=== PATIENT | female | born 1960 | race Caucasian/White ===

== ENCOUNTER → 2017-02-01 | Outpatient (CLI) | payer MEDICARE, MEDICAID ==
[2015-03-09 22:00] VITALS: BP 127/90
[~2017-02-01] MED LIST: AZIT500T2 PO; CARI350T PO; CHOL10003 PO; ESOM40CA PO; ESTR0.9T PO; HYDR-2679 PO; HYDR-2762 PO; LEVO175T2 PO; LEVO175T5 PO; LOSA25TA4 PO; OMEP20CA5 PO; OMEP20TA PO; PHEN37.568 PO; SPIR25TA3 PO
--- NOTE | 2017-02-01 11:16 | RAD ---
Radionuclide gastric emptying study, 02/01/2017: History: Reflux and dysphagia with vomiting. The study was performed utilizing a solid test meal radiolabeled with 2.2 mCi of technetium 99m sulfur colloid. Imaging was performed over 1 hour. No gastroesophageal reflux was demonstrated. There was minimal extension of activity from the stomach into the small bowel. The time activity curve is relatively flat. An accurate T 1/2 cannot be calculated in this situation. IMPRESSION: Markedly delayed gastric emptying
== END | disposition home or self-care (01) ==
LOC: NM 07:32
PROVIDERS: ATTEND Internal Medicine Gastroenterology
DX: K21.9 Gastro-esophageal reflux disease without esophagitis (principal); K30 Functional dyspepsia; R13.10 Dysphagia, unspecified; R11.10 Vomiting, unspecified; Z86.73 Personal history of transient ischemic attack (TIA), and cerebral infarction without residual deficits
CPT/HCPCS: 78264; A9541

== ENCOUNTER → 2017-09-12 | Outpatient (CLI) | payer MEDICARE, MEDICAID ==
[2015-03-09 22:00] VITALS: BP 127/90
[~2017-09-12] MED LIST changes: -OMEP20TA PO; +OMEP20TA8 PO; -PHEN37.568 PO; +PHEN37.598 PO
--- NOTE | 2017-09-13 10:24 | RAD ---
DATE: 09/12/2017 EXAM: MAMMO CHRISTINA SCREENING BILATERAL HISTORY: Routine screening COMPARISON: 08/31/2016 This study was interpreted with the benefit of Computerized Aided Detection (CAD). The breast parenchyma is heterogeneously dense, which could reduce sensitivity of mammography. Breast parenchyma level C. FINDINGS: 2-D and 3-D tomosynthesis imaging was performed in CC and MLO projections. No new or enlarging breast densities are seen. Benign type calcifications are present. No suspicious microcalcifications have developed. IMPRESSION: Stable mammograms without evidence of malignancy. BI-RADS CATEGORY: 2 BENIGN FINDING(S) RECOMMENDED FOLLOW-UP: 12M 12 MONTH FOLLOW-UP PQRS compliance statement: Patient information was entered into a reminder system with a target due date for the next mammogram. Mammography is a sensitive method for finding small breast cancers, but it does not detect them all and is not a substitute for careful clinical examination. A negative mammogram does not negate a clinically suspicious finding and should not result in delay in biopsying a clinically suspicious abnormality. "Our facility is accredited by the [employer] Mammography Program."
== END | disposition home or self-care (01) ==
LOC: MAMMO 15:37
PROVIDERS: ATTEND Physician Assistant Medical
DX: Z12.31 Encounter for screening mammogram for malignant neoplasm of breast (principal)
CPT/HCPCS: 77063; G0202; 77067

== ENCOUNTER → 2017-09-25 | Outpatient (CLI) | payer MEDICARE, MEDICAID ==
[2015-03-09 22:00] VITALS: BP 127/90
--- NOTE | 2017-09-25 16:41 | RAD ---
2 view CXR: Clinical indications: Influenza. Cough. Congestion. Comparison: January 20, 2015. Findings: No acute lung infiltrate or pleural effusion or pulmonary edema or lung mass or pneumothorax is seen. The heart size, pulmonary vasculature, mediastinum and both jonn are unremarkable. The osseous structures appear intact. Impression: No acute radiographic abnormality is seen.
== END | disposition home or self-care (01) ==
LOC: RAD 16:11
PROVIDERS: ATTEND Nurse Practitioner Family
DX: R05 Cough (principal); R09.89 Other specified symptoms and signs involving the circulatory and respiratory systems
CPT/HCPCS: 71020

== ENCOUNTER → 2017-11-17 | Outpatient (CLI) | payer MEDICARE, MEDICAID ==
[2015-03-09 22:00] VITALS: BP 127/90
--- NOTE | 2017-11-17 11:46 | RAD ---
EXAM: Lumbar spine 2 or 3 views. HISTORY: Low back pain COMPARISON: 02/07/2013. FINDINGS: There is a mild lower lumbar levocurvature. Degenerative disc disease is moderate to severe at L4-5, progressed since the prior study. It is mild at L5-S1. No fractures are identified. Cholecystectomy clips are noted. IMPRESSION: 1. Moderate to severe degenerative disc disease at L4-5 has progressed since 2012.
== END | disposition home or self-care (01) ==
LOC: RAD 10:38
PROVIDERS: ATTEND Nurse Practitioner Family
DX: M51.36 Other intervertebral disc degeneration, lumbar region (principal); K21.9 Gastro-esophageal reflux disease without esophagitis
CPT/HCPCS: 72100

== ENCOUNTER 2018-06-19 04:38 | Emergency (ER) | payer MEDICARE, MEDICAID ==
[~2018-06-19] VITALS: Ht 170.2 cm; Wt 117.9 kg
[~2018-06-19 04:38] MED LIST changes: -LOSA25TA4 PO; +LOSA25TA5 PO; -SPIR25TA3 PO; +SPIR25TA5 PO
[2018-06-19 05:11] LABS: BASO % 1 % (0-3); EOS # 0.1 x10^3/uL (0.0-0.7); EOS % 1 % (0-3); HEMATOCRIT 40.9 % (36.0-47.0); HEMOGLOBIN 13.5 g/dL (12.0-15.5); LYMPH # 2.3 x10^3/uL (1.0-4.8); LYMPH % 26 % (24-48); MEAN CORPUSCULAR HEMOGLOBIN 27 pg (25-35); MEAN CORPUSCULAR HGB CONC 33 g/dL (31-37); MEAN CORPUSCULAR VOLUME 83 fL (79-100); MONO # 0.8 x10^3/uL (0.0-1.1); MONO % 9 % (0-9); NEUT # 5.7 x10^3uL (1.8-7.7); NEUT % 64 % (31-73); PLATELET COUNT 229 x10^3/uL (140-400); RED BLOOD COUNT 4.95 x10^6/uL (3.50-5.40); RED CELL DISTRIBUTION WIDTH 15.8 % (11.5-14.5); WHITE BLOOD COUNT 8.8 x10^3/uL (4.0-11.0)
--- NOTE | 2018-06-19 05:13 | ED.ADGEN ---
Past History Past Medical History: GERD, Hypertension, Hypothyroid (JENNIFER HERNANDES DO) Past Surgical History: Appendectomy, Cholecystectomy, , Hysterectomy (JENNIFER HERNANDES DO) Alcohol Use: None Drug Use: None (JENNIFER HERNANDES DO) Adult General Chief Complaint Chief Complaint Left lower quadrant pain (JENNIFER HERNANDES DO) HPI HPI Patient is a 57-year-old female presents with left lower quadrant pain status post colonoscopy 4 days ago. It is described as pressure-like and is worse with palpation and ambulation and movement. Patient reports nausea and loss of appetite is associated with dizziness. Patient has been able to pass gas without relief. She has not spoken with her collections attorney who performed the procedure [facility] and is unaware if any biopsies were performed. No other acute symptoms or complaints.[] (JENNIFER HERNANDES DO) Review of Systems Review of Systems ROS as per HPI. All other systems were reviewed and found to be within normal limits, except as documented in this note. (JENNIFER HERNANDES DO) Current Medications Current Medications Current Medications Medications (Trade) Dose Ordered Sig/Alberto Start Time Stop Time Status Last Admin Dose Admin Ciprofloxacin (Cipro) 500 mg 1X ONCE 06/19/18 07:00 06/19/18 07:02 DC 06/19/18 06:43 500 MG Hydromorphone HCl (Dilaudid) 1 mg STK-MED ONCE 06/19/18 06:40 06/19/18 06:41 DC Info (Do NOT chart on this entry -- for MONITORING) 1 each PRN DAILY PRN 06/19/18 06:00 06/19/18 08:05 DC Iohexol (Omnipaque 300 Mg/ml) 75 ml 1X ONCE 06/19/18 06:00 06/19/18 06:01 DC 06/19/18 05:54 75 ML Metronidazole (Flagyl) 500 mg 1X ONCE 06/19/18 07:00 06/19/18 07:02 DC 06/19/18 06:43 500 MG Morphine Sulfate (Morphine 4mg Syringe) 4 mg 1X ONCE 06/19/18 06:00 06/19/18 06:01 DC 06/19/18 05:48 4 MG Ondansetron HCl (Zofran) 4 mg 1X ONCE 06/19/18 06:00 06/19/18 06:01 DC 06/19/18 05:48 4 MG (JENNIFER CARTER DO) Allergies Allergies Allergies Coded Allergies Type Severity Reaction Last Updated Verified adhesive Allergy Intermediate blisters 06/19/18 Yes codeine Allergy Unknown 06/19/18 Yes (JENNIFER CARTER DO) Physical Exam Physical Exam Constitutional: Well developed, distress secondary to pain. [] HENT: Normocephalic, atraumatic, bilateral external ears normal, oropharynx moist, no oral exudates, nose normal. [] Eyes: PERRLA, EOMI, conjunctiva normal, no discharge. [] Neck: Normal range of motion, no tenderness, supple, no stridor. [] Cardiovascular:Heart rate regular rhythm, no murmur [] Lungs & Thorax: Bilateral breath sounds clear to auscultation [] Abdomen: Bowel sounds normal, lower quadrant pain with voluntary guarding.. [] Extremities: No tenderness. [] (JENNIFER HERNANDES DO) Current Patient Data Vital Signs Vital Signs Date Time Temp Pulse Resp B/P (MAP) Pulse Ox O2 Delivery O2 Flow Rate FiO2 06/19/18 07:26 87 12 126/79 (95) 95 Room Air 06/19/18 04:43 98.2 (JENNIFER CARTER DO) Lab Results Laboratory Tests Test 06/19/18 04:50 06/19/18 04:55 White Blood Count 8.8 x10^3/uL (4.0-11.0) Red Blood Count 4.95 x10^6/uL (3.50-5.40) Hemoglobin 13.5 g/dL (12.0-15.5) Hematocrit 40.9 % (36.0-47.0) Mean Corpuscular Volume 83 fL (79-100) Mean Corpuscular Hemoglobin 27 pg (25-35) Mean Corpuscular Hemoglobin Concent 33 g/dL (31-37) Red Cell Distribution Width 15.8 % (11.5-14.5) H Platelet Count 229 x10^3/uL (140-400) Neutrophils (%) (Auto) 64 % (31-73) Lymphocytes (%) (Auto) 26 % (24-48) Monocytes (%) (Auto) 9 % (0-9) Eosinophils (%) (Auto) 1 % (0-3) Basophils (%) (Auto) 1 % (0-3) Neutrophils # (Auto) 5.7 x10^3uL (1.8-7.7) Lymphocytes # (Auto) 2.3 x10^3/uL (1.0-4.8) Monocytes # (Auto) 0.8 x10^3/uL (0.0-1.1) Eosinophils # (Auto) 0.1 x10^3/uL (0.0-0.7) Basophils # (Auto) 0.0 x10^3/uL (0.0-0.2) Sodium Level 142 mmol/L (136-145) Potassium Level 3.5 mmol/L (3.5-5.1) Chloride Level 105 mmol/L (98-107) Carbon Dioxide Level 27 mmol/L (21-32) Anion Gap 10 (6-14) Blood Urea Nitrogen 9 mg/dL (7-20) Creatinine 0.9 mg/dL (0.6-1.0) Estimated GFR (Cockcroft-Gault) 65.0 Glucose Level 97 mg/dL (70-99) Calcium Level 7.8 mg/dL (8.5-10.1) L Lipase 138 U/L (73-393) Urine Collection Type Unknown Urine Color Yellow Urine Clarity Clear Urine pH 6.5 Urine Specific Hancock 1.015 Urine Protein Neg (NEG-TRACE) Urine Glucose (UA) Neg mg/dL (NEG) Urine Ketones (Stick) Neg mg/dL (NEG) Urine Blood Neg (NEG) Urine Nitrite Neg (NEG) Urine Bilirubin Neg (NEG) Urine Urobilinogen Dipstick 0.2 mg/dL (0.2 mg/dL) Urine Leukocyte Esterase Trace (NEG) Urine RBC 0 /HPF (0-2) Urine WBC Occ /HPF (0-4) Urine Squamous Epithelial Cells Occ /LPF Urine Bacteria 0 /HPF (0-FEW) (JENNIFER CARTER DO) Lab Results Laboratory Tests Test 06/19/18 04:50 06/19/18 04:55 White Blood Count 8.8 x10^3/uL (4.0-11.0) Red Blood Count 4.95 x10^6/uL (3.50-5.40) Hemoglobin 13.5 g/dL (12.0-15.5) Hematocrit 40.9 % (36.0-47.0) Mean Corpuscular Volume 83 fL (79-100) Mean Corpuscular Hemoglobin 27 pg (25-35) Mean Corpuscular Hemoglobin Concent 33 g/dL (31-37) Red Cell Distribution Width 15.8 % (11.5-14.5) H Platelet Count 229 x10^3/uL (140-400) Neutrophils (%) (Auto) 64 % (31-73) Lymphocytes (%) (Auto) 26 % (24-48) Monocytes (%) (Auto) 9 % (0-9) Eosinophils (%) (Auto) 1 % (0-3) Basophils (%) (Auto) 1 % (0-3) Neutrophils # (Auto) 5.7 x10^3uL (1.8-7.7) Lymphocytes # (Auto) 2.3 x10^3/uL (1.0-4.8) Monocytes # (Auto) 0.8 x10^3/uL (0.0-1.1) Eosinophils # (Auto) 0.1 x10^3/uL (0.0-0.7) Basophils # (Auto) 0.0 x10^3/uL (0.0-0.2) Sodium Level 142 mmol/L (136-145) Potassium Level 3.5 mmol/L (3.5-5.1) Chloride Level 105 mmol/L (98-107) Carbon Dioxide Level 27 mmol/L (21-32) Anion Gap 10 (6-14) Blood Urea Nitrogen 9 mg/dL (7-20) Creatinine 0.9 mg/dL (0.6-1.0) Estimated GFR (Cockcroft-Gault) 65.0 Glucose Level 97 mg/dL (70-99) Calcium Level 7.8 mg/dL (8.5-10.1) L Lipase 138 U/L (73-393) Urine Collection Type Unknown Urine Color Yellow Urine Clarity Clear Urine pH 6.5 Urine Specific Hancock 1.015 Urine Protein Neg (NEG-TRACE) Urine Glucose (UA) Neg mg/dL (NEG) Urine Ketones (Stick) Neg mg/dL (NEG) Urine Blood Neg (NEG) Urine Nitrite Neg (NEG) Urine Bilirubin Neg (NEG) Urine Urobilinogen Dipstick 0.2 mg/dL (0.2 mg/dL) Urine Leukocyte Esterase Trace (NEG) Urine RBC 0 /HPF (0-2) Urine WBC Occ /HPF (0-4) Urine Squamous Epithelial Cells Occ /LPF Urine Bacteria 0 /HPF (0-FEW) (JENNIFER HERNANDES DO) EKG EKG [] (JENNIFER HERNANDES DO) Radiology/Procedures Radiology/Procedures [CT abdomen pelvis:] (JENNIFER HERNANDES DO) Impressions: Examination: CT of the abdomen pelvis with IV contrast HISTORY: History of severe left lower quadrant abdominal pain COMPARISON: 02/02/2016 TECHNIQUE: Axial CT images of the abdomen pelvis were performed with IV contrast. Coronal and sagittal reformats are performed Exposure: One or more of the following individualized dose reduction techniques were utilized for this examination: 1. Automated exposure control 2. Adjustment of the mA and/or kV according to patient size 3. Use of iterative reconstruction technique FINDINGS: Minimal bibasilar lung atelectasis. No evidence of free air identified in the abdomen. There is mild decreased attenuation noted throughout the liver likely hepatic steatosis. Small cystic structures identified in the liver with the largest measuring 1.1 cm in the right lobe likely cysts. Cholecystectomy clips identified. The visualized spleen, adrenals grossly appears unremarkable. The visualized pancreas grossly appears unremarkable. The stomach is mildly distended. Small hiatal hernia. The small bowel is nondilated. Feces and gas noted in the colon. Few sigmoid colon diverticulosis identified. There is moderate to severe inflammatory fat stranding identified about the diverticula in the proximal sigmoid colon likely acute severe diverticulitis. There is mild wall thickening in the proximal sigmoid colon. Urinary bladder is mildly distended. Bilateral kidneys enhance symmetrically. No evidence of lytic bony destructive lesion. IMPRESSION: 1. Severe acute diverticulitis of the sigmoid colon. Electronically signed by: Juan Mahmood MD (06/19/2018 6:16 AM) [facility] (JENNIFER CARTER DO) Course & Med Decision Making Course & Med Decision Making Pertinent Labs and Imaging studies reviewed. (See chart for details) [Lab work reviewed. CT abdomen pelvis ordered and is pending. Care endorsed to oncoming [facility] at 06:[address] and final disposition.] (JENNIFER HERNANDES DO) Course & Med Decision Making The patient's CT scan is significant for acute diverticulitis. Her labs are unremarkable. She does not have a fever in the emergency room. I will treat her as an outpatient with Flagyl and Cipro. We gave the first dose in the ED. she is stable for discharge at this time. If her condition worsens or her pain cannot be controlled with by mouth medication, she will return to the emergency room. (JENNIFER CARTER DO) Final Impression Final Impression [] (JENNIFER HERNANDES DO) Final Impression sigmoid diverticulitis (JENNIFER CARTER DO) Dragon Disclaimer Dragon Disclaimer This electronic medical record was generated, in whole or in part, using a voice recognition dictation system. (JENNIFER HERNANDES DO) JENNIFER HERNANDES DO Jun 19, 2018 05:13 JENNIFER CARTER DO Jun 19, 2018 06:27
[2018-06-19 05:15] LABS: BACTERIA,URINE 0 /HPF (0-FEW); BILIRUBIN,URINE NEG (NEG); CLARITY,URINE CLEAR; COLOR,URINE YELLOW; GLUCOSE,URINE NEG (NEG); NITRITE,URINE NEG (NEG); RBC,URINE 0 /HPF (0-2); SQUAMOUS EPITHELIAL CELL,UR OCC /LPF; UROBILINOGEN,URINE 0.2 mg/dL (0.2 mg/dL); WBC,URINE OCC /HPF (0-4)
[2018-06-19 05:17] LABS: CREATININE 0.9 mg/dL (0.6-1.0); POTASSIUM 3.5 mmol/L (3.5-5.1)
[2018-06-19 05:22] LABS: CALCIUM 7.8 mg/dL (8.5-10.1)
[2018-06-19] MEDS: ONDANSETRON PF 4 MG/2 ML VIAL. IV ONE (05:48)
[2018-06-19] MEDS: MORPHINE SULFATE 4 MG/ML DISP.SYRIN. IV ONE (05:48)
[2018-06-19] MEDS: IOHEXOL 300 MG/ML 75 ML VIAL. IV ONE (05:54)
[2018-06-19] MEDS ORDERED: CONTRAST GIVEN MC PRN (06:00)
--- NOTE | 2018-06-19 06:20 | RAD ---
Examination: CT of the abdomen pelvis with IV contrast HISTORY: History of severe left lower quadrant abdominal pain COMPARISON: 02/02/2016 TECHNIQUE: Axial CT images of the abdomen pelvis were performed with IV contrast. Coronal and sagittal reformats are performed Exposure: One or more of the following individualized dose reduction techniques were utilized for this examination: 1. Automated exposure control 2. Adjustment of the mA and/or kV according to patient size 3. Use of iterative reconstruction technique FINDINGS: Minimal bibasilar lung atelectasis. No evidence of free air identified in the abdomen. There is mild decreased attenuation noted throughout the liver likely hepatic steatosis. Small cystic structures identified in the liver with the largest measuring 1.1 cm in the right lobe likely cysts. Cholecystectomy clips identified. The visualized spleen, adrenals grossly appears unremarkable. The visualized pancreas grossly appears unremarkable. The stomach is mildly distended. Small hiatal hernia. The small bowel is nondilated. Feces and gas noted in the colon. Few sigmoid colon diverticulosis identified. There is moderate to severe inflammatory fat stranding identified about the diverticula in the proximal sigmoid colon likely acute severe diverticulitis. There is mild wall thickening in the proximal sigmoid colon. Urinary bladder is mildly distended. Bilateral kidneys enhance symmetrically. No evidence of lytic bony destructive lesion. IMPRESSION: 1. Severe acute diverticulitis of the sigmoid colon. Electronically signed by: Juan Mahmood MD (06/19/2018 6:16 AM) [facility]
[2018-06-19] MEDS ORDERED: METR500T8 PO (06:36)
[2018-06-19] MEDS ORDERED: CIPR500T94 PO (06:36)
[2018-06-19] MEDS ORDERED: HYDROmorphone PF 1 MG/ML DISP.SYRIN ONE (06:40)
[2018-06-19] MEDS: metroNIDAZOLE 500 MG TABLET PO ONE (06:43)
[2018-06-19] MEDS: CIPROFLOXACIN HCL 500 MG TABLET PO ONE (06:43)
[2018-06-19] MEDS: HYDROmorphone PF 1 MG/ML DISP.SYRIN IV ONE (06:44)
[2018-06-19 07:26] VITALS: BP 126/79
== END 2018-06-19 07:26 | disposition home or self-care (01) ==
LOC: ER 04:38
DX: K57.32 Diverticulitis of large intestine without perforation or abscess without bleeding (principal); R42 Dizziness and giddiness; K21.9 Gastro-esophageal reflux disease without esophagitis; I10 Essential (primary) hypertension; E03.9 Hypothyroidism, unspecified; Z90.89 Acquired absence of other organs; Z90.49 Acquired absence of other specified parts of digestive tract; Z98.890 Other specified postprocedural states; Z90.710 Acquired absence of both cervix and uterus; Z88.5 Allergy status to narcotic agent; Z88.8 Allergy status to other drugs, medicaments and biological substances
CPT/HCPCS: 36415; 74177; 80048; 81001; 83690; 85025; 87086; 96374; 96375; 99285; J1170; J2270; J2405; Q9967

== ENCOUNTER → 2018-09-18 | Outpatient (CLI) | payer MEDICARE, MEDICAID ==
[~2018-09-18] MED LIST changes: +CIPR500T94 PO; -HYDR-2762 PO; +HYDR-2765 PO; +LOSA25TA11 PO; -LOSA25TA5 PO; +METR-84 PO
--- NOTE | 2018-09-20 10:51 | RAD ---
DATE: 09/18/2018 11:30 AM EXAM: MAMMO CHRISTINA SCREENING BILATERAL HISTORY: routine screening evaluation. COMPARISON: 08/21/2011 Bilateral CC and MLO views of the breasts were performed. Bilateral breast tomosynthesis was performed in CC and MLO projections. This study was interpreted with the benefit of Computerized Aided Detection (CAD ). Breast Density: The breast parenchyma is heterogeneously dense, which could reduce sensitivity of mammography. Breast parenchyma level C. FINDINGS: Benign calcifications are present. No suspicious masses, microcalcifications or architectural distortion is present to suggest malignancy in either breast. The visualized axillae are unremarkable. IMPRESSION: No mammographic evidence of malignancy. BI-RADS CATEGORY: 2 BENIGN FINDING(S) RECOMMENDED FOLLOW-UP: 12M 12 MONTH FOLLOW-UP Annual screening mammography is recommended, unless clinically indicated sooner based on symptoms or change in physical exam. PQRS compliance statement: Patient information was entered into a reminder system with a target due date 09/19/2019 for the next mammogram. Mammography is a sensitive method for finding small breast cancers, but it does not detect them all and is not a substitute for careful clinical examination. A negative mammogram does not negate a clinically suspicious finding and should not result in delay in biopsying a clinically suspicious abnormality. "Our facility is accredited by the [employer] Mammography Program." MTDD
== END | disposition home or self-care (01) ==
LOC: MAMMO 09:13
PROVIDERS: ATTEND Physician Assistant Medical
DX: Z12.31 Encounter for screening mammogram for malignant neoplasm of breast (principal)
CPT/HCPCS: 77063; 77067

== ENCOUNTER → 2018-12-10 | Outpatient (CLI) | payer MEDICARE, MEDICAID ==
[~2018-12-10] MED LIST changes: +METR-34 PO; -METR-84 PO
--- NOTE | 2018-12-10 13:33 | RAD ---
EXAM: Right foot, 3 views. HISTORY: Blunt trauma. COMPARISON: None. FINDINGS: 3 views of the right foot are obtained. There is no fracture, dislocation or subluxation. IMPRESSION: No acute osseous finding. Electronically signed by: Yovana Bloom MD (12/10/2018 1:30 PM) [email or web address]
== END | disposition home or self-care (01) ==
LOC: RAD 08:10
PROVIDERS: ATTEND Physician Assistant Medical
DX: S99.921A Unspecified injury of right foot, initial encounter (principal); X58.XXXA Exposure to other specified factors, initial encounter; Y93.89 Activity, other specified; Y92.89 Other specified places as the place of occurrence of the external cause; Y99.8 Other external cause status
CPT/HCPCS: 73630

== ENCOUNTER → 2019-04-04 | Outpatient (CLI) | payer MEDICARE, MEDICAID ==
--- NOTE | 2019-04-04 13:45 | RAD ---
Examination: CT ABDOMEN PELVIS WO CONTRAST History: Left lower quadrant abdominal pain. Comparison/Correlation: 06/19/2018 CT abdomen and pelvis with contrast Findings: Axial images of the abdomen and pelvis were obtained without contrast. Sagittal and coronal reformatted images were provided. Visualized lung bases are clear. Lower right hepatic lobe cyst has remained stable measuring less than 1 cm diameter. Cholecystectomy is evident. Spleen is normal. Pancreas is unremarkable. Adrenal glands are normal normal. Right renal superior pole cyst involvement noted. No radiopaque collecting system calculi. No collecting system obstruction. No extraluminal gas. Diverticulosis of the colon is present without findings of acute inflammation. Minimal residual scarring is suggested about the proximal sigmoid colon. Surgical clip involving the left lower pelvis is present. Urinary bladder is unremarkable. No inflammatory change about the cecum. No enlarged abdominal or pelvic lymph nodes. No ascites or pelvic free fluid. Small umbilical hernia contains omental fat. Relatively less T9 vertebral body height is evident and this is stable compared to previous two-view chest x-ray exam dated 09/25/2017. Significant L4-5 disc space narrowing is present. Impression: Diverticulosis. Previously identified proximal sigmoid diverticulitis as result. There is very minimal residual surrounding scarring. No collections. No acute processes identified. PQRS Compliance Statement: One or more of the following individualized dose reduction techniques were utilized for this examination: 1. Automated exposure control 2. Adjustment of the mA and/or kV according to patient size 3. Use of iterative reconstruction technique Electronically signed by: Rad Middleton MD (04/04/2019 1:42 PM) [facility]
== END | disposition home or self-care (01) ==
LOC: CT 11:09
PROVIDERS: ATTEND Physician Assistant Medical
DX: K57.30 Diverticulosis of large intestine without perforation or abscess without bleeding (principal); K42.9 Umbilical hernia without obstruction or gangrene; K76.89 Other specified diseases of liver; N28.1 Cyst of kidney, acquired; Z90.49 Acquired absence of other specified parts of digestive tract
CPT/HCPCS: 74176

== ENCOUNTER → 2019-10-03 | Outpatient (CLI) | payer MEDICAID, MEDICARE ==
--- NOTE | 2019-10-03 15:41 | RAD ---
DATE: 10/03/2019 EXAM: MAMMO CHRISTINA SCREENING BILATERAL HISTORY: Routine screening COMPARISON: 08/31/2016, 09/12/2017, 02/16/2018 mammographic exams This study was interpreted with the benefit of Computerized Aided Detection (CAD). Breast Density: HETERO The breast parenchyma is heterogenously dense, which could reduce sensitivity of mammography. Breast parenchyma level C. FINDINGS: No suspicious mass, calcification, or distortion compared to prior exams. There is an asymmetry at the right outer breast which is somewhat more evident than prior exams located 6.5 cm from the nipple. This appears to have finding on the CC tomosynthesis images also new compared to previous exam. IMPRESSION: New right outer breast asymmetry. BI-RADS CATEGORY: 0 INCOMPLETE: NEEDS ADDITIONAL IMAGING EVALUATION AND/OR PRIOR MAMMOGRAMS FOR COMPARISON. RECOMMENDED FOLLOW-UP: ADD ADDITIONAL IMAGING. Spot compression of the right outer breast recommended. Ultrasound of the right breast may be needed. PQRS compliance statement: Patient information was entered into a reminder system with a target due date for the next mammogram. Mammography is a sensitive method for finding small breast cancers, but it does not detect them all and is not a substitute for careful clinical examination. A negative mammogram does not negate a clinically suspicious finding and should not result in delay in biopsying a clinically suspicious abnormality. "Our facility is accredited by the [employer] Mammography Program."
== END | disposition home or self-care (01) ==
LOC: MAMMO 10:00
PROVIDERS: ATTEND Physician Assistant Medical
DX: Z12.31 Encounter for screening mammogram for malignant neoplasm of breast (principal)
CPT/HCPCS: 77063; 77067

== ENCOUNTER → 2019-10-14 | Outpatient (CLI) | payer MEDICARE ==
--- NOTE | 2019-10-14 14:45 | RAD ---
History: Routine screening. Technique: Bilateral digital mammographic routine views were obtained with CAD - computer aided detection. Comparison: July 30, 2018. Findings: Breast Tissue Density B :The breast tissue is composed of mixed fatty and fibroglandular tissue. There are no suspicious masses, microcalcifications or areas of architectural distortion. Impression: Negative mammogram. BI-RADS Category 1: Negative. Normal interval followup. A mammogram does not have 100% sensitivity and therefore a negative imaging study should not delay further work up of a suspicious abnormality. The patient will receive a letter with the results in the mail. Patient information is entered into the reminder system with a target due date for the next screening mammogram. The patient will receive a reminder. "Our facility is accredited by the [employer] Mammography Program." BI-RADS 1 -- negative findings (within normal)
--- NOTE | 2019-10-14 17:57 | RAD ---
Limited right breast ultrasound. INDICATION: Persistent asymmetry in the lateral middle third right breast on earlier same day right diagnostic mammogram. TECHNIQUE: Grayscale and color Doppler imaging of the right breast was performed, focused on the lateral middle third. FINDINGS: At the right 9:00 position 7 cm from the nipple, an oval circumscribed parallel orientation 1.0 x 0.4 x 0.6 cm circumscribed mass is seen with no internal vascularity. This is a sonographically benign finding most consistent with an uncomplicated cyst. IMPRESSION: Benign findings right breast. No evidence of malignancy. Recommend return to routine screening next doing one year. BI-RADS Category 2 Benign findings Patient entered into a reminder system with target due date for next mammogram. . BI-RADS 2 -- benign findings
== END | disposition home or self-care (01) ==
LOC: MAMMO 12:56
PROVIDERS: ATTEND Physician Assistant Medical
DX: N63.10 Unspecified lump in the right breast, unspecified quadrant (principal); R92.2 Inconclusive mammogram
CPT/HCPCS: 76641; 77065

== ENCOUNTER → 2020-11-18 | Outpatient (CLI) | payer OTHER ==
--- NOTE | 2020-11-22 09:02 | RAD ---
DATE: 11/18/2020 11:20 AM EXAM: MAMMO CHRISTINA SCREENING BILATERAL HISTORY: Screening COMPARISON: 10/03/2019, 09/18/2018 Bilateral CC and MLO views of the breasts were performed. Bilateral breast tomosynthesis was performed in CC and MLO projections. This study was interpreted with the benefit of Computerized Aided Detection (CAD). FINDINGS: Breast Density: SCATTERED The breast parenchyma shows scattered fibroglandular densities. Breast parenchyma level B No suspicious masses, microcalcifications or architectural distortion is present to suggest malignancy in either breast. The visualized axillae are unremarkable. IMPRESSION: No mammographic evidence of malignancy. BI-RADS CATEGORY: 1 NEGATIVE RECOMMENDED FOLLOW-UP: 12M 12 MONTH FOLLOW-UP Annual screening mammography is recommended, unless clinically indicated sooner based on symptoms or change in physical exam. PQRS compliance statement: Patient information was entered into a reminder system with a target due date for the next mammogram. Mammography is a sensitive method for finding small breast cancers, but it does not detect them all and is not a substitute for careful clinical examination. A negative mammogram does not negate a clinically suspicious finding and should not result in delay in biopsying a clinically suspicious abnormality. "Our facility is accredited by the [employer] Mammography Program."
== END ==
LOC: MAMMO 11:05
PROVIDERS: ATTEND Physician Assistant Medical
DX: Z12.31 Encounter for screening mammogram for malignant neoplasm of breast (principal)
CPT/HCPCS: 77063; 77067

== ENCOUNTER → 2020-12-07 | Outpatient (CLI) | payer OTHER ==
--- NOTE | 2020-12-07 09:44 | RAD ---
EXAM: DUAL ENERGY X-RAY ABSORPTIOMETRY (DEXA). HISTORY: Postmenopausal screening. FINDINGS: The lowest measured T-score is -2.9 in the lumbar spine, based on a bone mineral density of 0.826 g/cm^2. Refer to the worksheets for full detail. There has been an 8.8 percent increase in density of the lumbar spine and 5.8 percent increase in den sity of the right hip compared to a baseline exam performed 03/14/2011. IMPRESSION: 1. Osteoporosis. Bone mineral density yields a T-score of -2.5 or less. Fracture risk is high. 2. FRAX report: Not calculated. METHODOLOGY: Dual energy x-ray absorptiometry was performed to measure bone mineral density. The foll owing analysis is based on the 2019 Official Positions of the International Society for Clinical Dens itometry: Measurements of the hips and the average of L1-L4 are preferred. When the spine and/or hip cannot be feasibly measured or interpreted, or in the setting of hyperparathyroidism, distal radial bone minera l density may be measured. The lumbar spine T-score is based on the average bone mineral density of L1-L4. In the setting of art ifact or anatomic abnormality, some lumbar levels may be excluded, and the remaining levels used for calculation. A single lumbar level is not used for diagnosis, and if only a single level is available for assessment, another anatomic site will be used to assign a diagnosis. The hip T-score is based on the bone mineral density measurement of the femoral neck or total proxima l femur of either side, whichever is lowest. Bilateral mean values are not used for diagnosis. The forearm T-score is derived from 33% of the distal radius of the nondominant forearm. Electronically signed by: Yovana Bloom MD (12/07/2020 9:42 AM) [id number]
== END ==
LOC: DXRAD 09:00
PROVIDERS: ATTEND Physician Assistant Medical
DX: M81.0 Age-related osteoporosis without current pathological fracture (principal); Z78.0 Asymptomatic menopausal state
CPT/HCPCS: 77080

== ENCOUNTER → 2020-12-07 | Outpatient (CLI) | payer OTHER ==
--- NOTE | 2020-12-07 13:11 | RAD ---
EXAM: Nuclear gastric emptying scan. HISTORY: Dysphagia. COMPARISON: None. TECHNIQUE: Serial static images were obtained over the stomach following oral administration of 2 mCi 99m-Tc sulfur colloid. FINDINGS: The stomach empties into the small bowel without evidence of reflux in the area of the esop hagus. Gastric retention percents: 1 hour 70 percent (normal range 34.8-91%) 2 hour 53 percent (normal range 2.7-60%) 3 hour 22 percent (normal range 0.5-28%) 4 hour 6 percent (normal range 0-10%) The estimated time for half emptying of gastric contents, i.e. 'gastric emptying time' is 124 minutes (normal is 66 +/- 22 minutes). IMPRESSION: Delayed gastric emptying half-time. The percentage of gastric retention at 1 hour, 2 hour s, 3 hours and 4 hours remains within normal limits. Electronically signed by: Yovana Bloom MD (12/07/2020 1:09 PM) [id number]
== END ==
LOC: NM 08:06
PROVIDERS: ATTEND Physician Assistant Medical
DX: K30 Functional dyspepsia (principal); R13.10 Dysphagia, unspecified; Z78.0 Asymptomatic menopausal state
CPT/HCPCS: 78264; A9541

== ENCOUNTER → 2021-12-30 | Outpatient (CLI) | payer OTHER ==
--- NOTE | 2021-12-30 13:14 | RAD ---
Bilateral digital screening 2-D and 3-D (tomosynthesis) mammogram: Reason for examination: Routine screening. Comparison is made to previous study dated 11/18/2020, 10/03/2019, 09/17/2018. Right breast ultrasound f rom the 10/14/2019. Bilateral mammograms in CC and oblique projections were obtained with 2-D imaging and 3-D tomosynthes is imaging and reviewed on the workstation. Interpretation was made with the benefit of CAD. Findings: Breast density: Category C. The breasts are heterogeneously dense, which may obscure small masses. There are no new suspicious masses, malignant appearing calcifications or architectural distortion. A gain seen is a small oval circumscribed mass in the 9:00 region of right breast which is unchanged an d correlates with the small benign appearing mass seen on ultrasound. Impression: No evidence of malignancy. ASSESSMENT: BI-RADS 2. Benign findings. Recommendations: Routine screening mammograms. This patient's information has been entered into a reminder system for the patient to be notified wit h the results of her examination and a target date for the next mammogram. Your patient's mammogram demonstrates that she has dense breast tissue (breast density category C or D), which could hide abnormalities, and if she has other risk factors for breast cancer that have bee n identified, she might benefit from supplemental screening tests that may be suggested by you as her ordering physician. Dense breast tissue, in and of itself, is a relatively common condition. Therefo re, this information is not provided to cause undue concern, but rather to raise your awareness and t o promote discussion with your patient regarding the presence of other risk factors, in addition to d ense breast tissue. Electronically signed by: Sheila Rodriguez MD (12/30/2021 1:11 PM) [id number]
== END ==
LOC: MAMMO 10:22
PROVIDERS: ATTEND Physician Assistant Medical
DX: Z12.31 Encounter for screening mammogram for malignant neoplasm of breast (principal)
CPT/HCPCS: 77063; 77067

== ENCOUNTER → 2022-02-15 | Day surgery (SDC) | payer OTHER ==
[~2022-02-15] MED LIST changes: -OMEP20TA8 PO; +OMEP20TA91 PO
[2022-02-15 10:29] VITALS: BP 158/89
== END | disposition home or self-care (01) ==
LOC: SURG 10:06
PROVIDERS: ATTEND Anesthesiology
DX: M47.816 Spondylosis without myelopathy or radiculopathy, lumbar region (principal); M19.90 Unspecified osteoarthritis, unspecified site; K21.9 Gastro-esophageal reflux disease without esophagitis; M51.36 Other intervertebral disc degeneration, lumbar region; E03.9 Hypothyroidism, unspecified; M79.18 Myalgia, other site; Z90.710 Acquired absence of both cervix and uterus; Z98.891 History of uterine scar from previous surgery; Z90.49 Acquired absence of other specified parts of digestive tract; Z88.5 Allergy status to narcotic agent; Z85.41 Personal history of malignant neoplasm of cervix uteri; Z90.89 Acquired absence of other organs
CPT/HCPCS: 99204; G0463